=== PATIENT | female | born 1945 | race Caucasian/White ===

== ENCOUNTER 2020-05-29 08:33 | Outpatient (CLI) | payer MEDICARE, SELFPAY ==
--- NOTE | 2020-05-29 09:05 | MR_ITS ---
WS: [id number] MRI LUMBAR SPINE NONCONTRAST HISTORY: LOW BACK PAIN/VERTIGO COMPARISON: None available. TECHNIQUE: Sagittal and axial multisequence imaging is submitted. Only 4 lumbar type vertebral bodies are identified. There is a rudimentary rib from the T12 level. 3 mm retrolisthesis of L1, L2 and L3. There is severe degenerative disc disease with chronic endplate degenerative changes throughout the lumbar spine. Moderate LEFT convex curvature lumbar spine is degenerative. Conus terminates normally at L1. L1-L2: Moderate annular disc bulge with severe facet and ligamentum flavum arthritis. Osteophytic rid ging and disc disease contribute to the mild central and bilateral foraminal stenosis. More moderate subarticular recess stenosis bilaterally. L2-L3: Diffuse annular disc bulging and osteophytic ridging. Encroachment upon the thecal sac by face t arthropathy. Severe central, bilateral subarticular recess and RIGHT foraminal stenosis. Moderate L EFT foraminal stenosis. L3-L4: Diffuse annular disc bulging and osteophytic ridging. Severe facet joint arthropathy, LEFT gre ater than RIGHT. Marked encroachment upon the thecal sac with at least moderate central stenosis. Sev ere bilateral subarticular recess and LEFT foraminal stenosis. Moderate RIGHT foraminal stenosis. L4-L5: Annular disc bulging with facet arthritis, LEFT greater than RIGHT. Osteophyte encroachment up on the LEFT lateral thecal sac in the subarticular recesses. There is mild central and RIGHT foramina l and subarticular recess stenosis. Severe LEFT foraminal stenosis and LEFT subarticular recess steno sis. Small nerve root sleeve diverticulum on the LEFT at the S1 segment. Bilateral renal cysts. The larges t on the LEFT measures 2.6 cm. MR/MR lumbar spine wo con* [id number] IMPRESSION: 1. Only 4 lumbar type vertebral bodies are identified. This numbering pattern will be important to review if surgery is contemplated in this patient. 2. Advanced degenerative spondylitic changes and LEFT convex curvature the lum bar spine. 3. Multilevel areas of significant stenoses are multifactorial as described ab ove. 4. Severe central, bilateral subarticular recess and RIGHT foraminal stenosis at L2-3 with moderate LEFT foraminal stenosis. 5. Severe bilateral subarticular recess and LEFT foraminal stenosis at L3-4 wi th moderate RIGHT foraminal and central stenosis. 6. Severe LEFT foraminal stenosis and LEFT subarticular recess stenosis at L4- 5. 7. Moderate bilateral subarticular recess stenosis at L1-2.
--- NOTE | 2020-05-29 09:05 | MR_ITS ---
WS: [id number] MRI THORACIC SPINE noncontrast HISTORY: LOW BACK PAIN/VERTIGO COMPARISON: None available. TECHNIQUE: Multiplanar sequences are performed in sagittal and axial planes. Slight increase in the cervical lordosis. Moderate increase in thoracic kyphosis. There is a very sma ll amount of marrow edema along the adjacent endplates of L1 and L2. Advanced degenerative disc disea se throughout the thoracic spine. Signal within the cord is normal. T1-2: Mild disc bulging and facet arthritis. No stenosis. T2-3: Facet arthritis and disc bulging. No significant stenosis. T3-4: Normal. T4-5: Central disc protrusion and mild facet arthritis. No cord contact. T5-6: Moderate size central disc protrusion with mild cord contact and deformity. Mild bilateral fac et arthritis. T6-7: Shallow LEFT paracentral disc protrusion without stenosis. T7-8: Small LEFT paracentral disc protrusion with mild deformity of the thecal sac and no stenosis. T8-9: No stenosis. T9-10: Mild bilateral facet arthritis and central disc protrusion. Mild foraminal narrowing. T10-11: Moderate facet joint arthritis, LEFT greater than RIGHT with mild LEFT foraminal narrowing. Shallow central LEFT paracentral disc protrusion. T11-12: Moderate size central disc protrusion and osteophyte encroaching upon the ventral thecal sac . Mild facet arthritis. T12-L1: Annular disc bulging and facet arthritis. Mild contact and deformity the ventral thecal sac. Mild central and RIGHT foraminal narrowing. MR/MR thoracic spin wo con* [id number] IMPRESSION: 1. Multilevel degenerative disc changes with disc bulging and protrusions and osteophytes. 2. Mild degenerative increase in thoracic kyphosis. 3. No severe stenosis. 4. Moderate size central disc protrusion with mild cord contact at T5-6. 5. Moderate size central disc protrusion and osteophyte encroachment upon the ventral thecal sac at T11-12.
--- NOTE | 2020-05-29 09:23 | CT_ITS ---
WS: [id number] CT HEAD NONCONTRAST HISTORY: DIZZINESS AND GIDDINESS TECHNIQUE: Contiguous axial imaging performed through the brain in 2.5 mm imaging. Bone and soft tiss ue windows. All CT scans at [facility] use at least one of these dose optimization techniq ues: automated exposure control; mA and/or kV adjustment per patient size (includes targeted exams wh ere dose is matched to clinical indication); or iterative reconstruction. DLP: 992.04 mGycm COMPARISON: None available. No acute intracranial hemorrhage, midline shift or mass effect. Mild atrophy and mild chronic microvascular ischemic disease. Small lacunar infarcts along the exter nal capsules bilaterally. Ventricles: Normal size with no hydrocephalus. Paranasal sinuses: As visualized are clear. Mastoid air cells: Well pneumatized. Calvarium and scalp: Skull is intact with no soft tissue edema or swelling. Heavy calcification in the distal vertebral and the intracranial carotid arteries. CT/CT head wo con* [id number] IMPRESSION: 1. No acute intracranial hemorrhage. 2. Mild atrophy and chronic ischemic disease. 3. Significant atherosclerosis in the distal vertebral and the intracranial ca rotid arteries.
== END 2020-05-29 08:34 | disposition home or self-care (01) ==
LOC: RADWPI 08:42
PROVIDERS: PCP Nurse Practitioner Family; Visit Provider Nurse Practitioner Family
DX: R42 Dizziness and giddiness (principal); I67.82 Cerebral ischemia; G31.9 Degenerative disease of nervous system, unspecified; I65.29 Occlusion and stenosis of unspecified carotid artery; M51.24 Other intervertebral disc displacement, thoracic region; M25.78 Osteophyte, vertebrae; M48.061 Spinal stenosis, lumbar region without neurogenic claudication
CPT/HCPCS: 70450; 72146; 72148